=== PATIENT | female | born 1935 | race Caucasian/White ===

== ENCOUNTER → 2017-02-19 | Day surgery (SDC) | payer OTHER ==
[~2017-02-19] MED LIST: ALBU2.5I INH; ALBU8I INH; ALPR1TAB3 PO; CARD120T4 PO; ESTR1TAB PO; HYZA100T6 PO; MONT10 PO; OMEP20TA39 PO; ONDA4 PO; PROPOFOL 500 MG/50 ML BTL IV ONE; ROFL1TAB2 PO; SYMB160A INH; Z.0.OXYGEN INH
--- NOTE | 2017-02-19 09:40 | GIPROC ---
[facility] [address], [address] COLONOSCOPY PROCEDURE REPORT EXAM DATE: 02/19/2017 PATIENT NAME: Amanda Brooks MR #: [id number] BIRTHDATE: 1935 ENDOSCOPIST: Kristine Velazquez MD ORDER #: [id number] PLUG OVERWRAP MACHINE TENDER: Juan Pablo Sosa RN STATUS: outpatient INDICATIONS: The patient is a 81 yr old female here for a colonoscopy due to change in bowel habits, history of ischemic colitis, polyps PROCEDURE PERFORMED: Colonoscopy with biopsy Colonoscopy with polypectomy MEDICATIONS: None and Per Anesthesia. PREP QUALITY: good PREP TYPE:Other: ESTIMATED BLOOD LOSS: None CONSENT: The patient understands the risks and benefits of the procedure and understands that these risks include, but are not limited to: sedation, allergic reaction, infection, perforation and/or bleeding. Alternative means of evaluation and treatment include, among others: physical exam, x-rays, and/or surgical intervention. The patient elects to proceed with this endoscopic procedure. medical equipment was checked for proper function. Hand hygiene and appropriate measures for infection prevention was taken. After the risks, benefits and alternatives of the procedure were thoroughly explained, Informed consent was verified, confirmed and timeout was successfully executed by the treatment team. A digital exam revealed external hemorrhoids The EC-[id number] ([id number]) endoscope was introduced through the anus and advanced to the cecum, which was identified by both the appendix and ileocecal valve. The instrument was then slowly withdrawn as the colon was fully examined. COLON FINDINGS: Diverticulosis sigmoid,descending polyp sessile splenic flexure-6 mm hot snare polypectomy with complete removal random biopsies from ascending and descending colon. Retroflexed views revealed internal hemorrhoids and Retroflexed views revealed small internal hemorrhoids The scope was then completely withdrawn from the patient and the procedure terminated. PROCEDURE WITHDRAWAL TIME:6minutes ADVERSE EVENTS: There were no complications. IMPRESSIONS: 1. Diverticulosis sigmoid,descending polyp sessile splenic flexure-6 mm hot snare polypectomy with complete removal random biopsies from ascending and descending colon 2. Retroflexed views revealed internal hemorrhoids 3. Retroflexed views revealed small internal hemorrhoids 4. Revealed external hemorrhoids RECOMMENDATIONS: 1. Await biopsy results. Biopsy results will not be ready for 7-10 days. If you don't hear from us in two weeks, call our office for results. 2. Benefiber 2 tsp daily 3. Probiotics from any [employer] or health food store 4. Yearly rectal exams RECALL: Return 3 years Colonoscopy Kristine Velazquez MD eSigned: Kristine Velazquez MD 02/19/2017 9:39 AM cc: Donald Casey [facility] Schuster and Rao Tineo M.D. PATIENT NAME: Amanda Brooks MR#: [id number]
--- NOTE | 2017-02-19 09:44 | GIPROC ---
[facility] [address], [address] EGD PROCEDURE REPORT EXAM DATE: 02/19/2017 PATIENT NAME: Amanda Brooks MR #: [id number] BIRTHDATE: 1935 ATTENDING: Kristine Velazquez MD ORDER #: [id number] ANGIOGRAPHY TECHNOLOGIST: Juan Pablo Sosa RN STATUS: outpatient INDICATIONS: The patient is a 81 yr old female here for an EGD due to abdominal pain, melena PROCEDURE PERFORMED: EGD w/ biopsy MEDICATIONS: None and Per Anesthesia. TOPICAL ANESTHETIC: none CONSENT: The patient understands the risks and benefits of the procedure and understands that these risks include, but are not limited to: sedation, allergic reaction, infection, perforation and/or bleeding. Alternative means of evaluation and treatment include, among others: physical exam, x-rays, and/or surgical intervention. The patient elects to proceed with this endoscopic procedure. medical equipment was checked for proper function. Hand hygiene and appropriate measures for infection prevention was taken. After the risks, benefits and alternatives of the procedure were thoroughly explained, Informed consent was verified, confirmed and timeout was successfully executed by the treatment team. The patient was anesthetized with topical anesthesia and the EC-3890Li ([id number]) endoscope was introduced through the mouth and advanced to the second portion of the duodenum. Retroflexed views revealed a hiatal hernia The gastroscope was then slowly withdrawn and removed. Duodenitis duodenal bulb-biopsy gastritis antrum-biopsy esophagitis distal esophagus -biopsy. ADVERSE EVENTS: There were no complications. IMPRESSIONS: 1. Duodenitis duodenal bulb-biopsy gastritis antrum-biopsy esophagitis distal esophagus -biopsy 2. Retroflexed views revealed a hiatal hernia RECOMMENDATIONS: 1. Await biopsy results. Biopsy results will not be ready for 7-10 days. If you don't hear from us in two weeks, call our office for biopsy results. 2. Anti-reflux regimen 3. Continue PPI 4. Avoid NSAIDS PATIENT CONDITION: stable DISPOSITION: Home REPEAT EXAM: Return 1 year EGD Kristine Velazquez MD eSigned: Kristine Velazquez MD 02/19/2017 9:44 AM cc: Donald Casey [facility] Mariely Tineo M.D. PATIENT NAME: Amanda Brooks MR#: [id number]
== END | disposition home or self-care (01) ==
LOC: ESDC 07:18
PROVIDERS: ATTEND Internal Medicine Gastroenterology
DX: R19.4 Change in bowel habit (principal); K55.9 Vascular disorder of intestine, unspecified; Z86.010 Personal history of colon polyps; R10.9 Unspecified abdominal pain; K92.1 Melena; K64.4 Residual hemorrhoidal skin tags; D12.3 Benign neoplasm of transverse colon; K57.90 Diverticulosis of intestine, part unspecified, without perforation or abscess without bleeding; K64.8 Other hemorrhoids; K44.9 Diaphragmatic hernia without obstruction or gangrene; K29.80 Duodenitis without bleeding; K29.70 Gastritis, unspecified, without bleeding; K20.9 Esophagitis, unspecified
CPT/HCPCS: 88305; 88312

== ENCOUNTER 2017-07-08 14:22 | Inpatient (IN) | payer MEDICARE ==
[~2017-07-08] VITALS: Ht 142.2 cm; Wt 51.5 kg
[~2017-07-08 14:22] MED LIST changes: -PROPOFOL 500 MG/50 ML BTL IV ONE
[2017-07-08 14:28] VITALS: BP 119/58; PULSE 77; RESP 24; TEMP 94.7; O2SAT 97
[2017-07-08] MEDS ORDERED: SYMB160A INH (14:47)
[2017-07-08] MEDS ORDERED: MONT10TA2 PO (14:47)
[2017-07-08] MEDS ORDERED: CARD120T4 PO (14:47)
[2017-07-08] MEDS ORDERED: OMEP20TA93 PO (14:47)
[2017-07-08] MEDS ORDERED: VENTAER INH (14:47)
[2017-07-08] MEDS ORDERED: LOSA100T2 PO (14:47)
[2017-07-08] MEDS ORDERED: ALPR1TAB3 PO (14:47)
[2017-07-08] MEDS ORDERED: ESTR1TAB PO (14:47)
[2017-07-08] MEDS ORDERED: SODIUM CHLOR 0.9% 1000 ML INJ 1,000 ML IV ONE (15:15)
--- NOTE | 2017-07-08 15:22 | PD ---
HPI Chief Complaint: Medical Clearance Time Seen by Provider: 15:00 Travel History International Travel<30 days: No Contact w/Intl Traveler<30days: No Traveled to known affect area: No History of Present Illness HPI 82 YO F presents to the ED concerned for medication reaction. The patient states that she was experiencing dysuria and back pain. She was treated for a UTI by her PCP for ~ 3 weeks. She states that she took a course of an unknown antibiotic without resolution of symptoms and saw her PCP again today. She states that she was administered a "shot of penicillin" in the office and prescribed amoxicillin today. She took a single dose of amoxicillin and had an episode of N/V, SOB and diaphoretic. States symptoms are resolved on presentation. On presentation the patient endorses intermittent dizziness without headache, vision changes or trauma. She endorses loose, nonbloody stools times "a few days." She endorses dysuria and bilateral back pain. She denies chest pain, palpitations, shortness of breath, abdominal pain, weakness of the extremities. PFSH Past Medical History Asthma: Yes Autoimmune Disease: No Anxiety: Yes Depression: Yes Heart Rhythm Problems: Yes (SVT) Cancer: Yes (LEUKEMIA, LYMPHOMA) Cardiac Catheterization: No Cardiovascular Problems: Yes (SVT ) High Cholesterol: No Chemotherapy: Yes Chest Pain: No Congestive Heart Failure: No COPD: Yes (NOT ON O2) Cerebrovascular Accident: No Diabetes: No Diminished Hearing: No Endocrine: No Gastrointestinal Disorders: Yes GERD: Yes Genitourinary: Yes (URETHRA DILATED SEVERAL TIMES) Headaches: No Hiatal Hernia: Yes Hypertension: Yes Immune Disorder: No Kidney Stones: Yes Musculoskeletal: Yes (ARTHRITIS) Neurologic: Yes Psychiatric: Yes Reproductive: No Respiratory: Yes (COPD, ASTHMA ) Migraines: No Radiation Therapy: No Renal Failure: No Seizures: No Sickle Cell Disease: No Sleep Apnea: No Thyroid Disease: No Ulcer: No Menopausal: Yes Past Surgical History Abdominal Surgery: Yes (GALLBLADDER) AICD: No Arteriovenous Shunt: No Cardiac Surgery: No Cholecystectomy: Yes Coronary Artery Bypass Graft: No Ear Surgery: No Endocrine Surgery: No Eye Surgery: Yes (BILAT CATARACT SURGERY X2) Genitourinary Surgery: Yes (2010) Gynecologic Surgery: Yes (HYSTERECTOMY) Hysterectomy: Yes Insulin Pump: No Joint Replacement: No Oral Surgery: No Pacemaker: No Thoracic Surgery: No Other Surgery: Yes (HEMMORRHOIDS ) Social History Alcohol Use: No Tobacco Use: No Substance Use: No Allergies-Medications (Allergen,Severity, Reaction): Coded Allergies: Penicillins (Verified Allergy, Severe, 07/08/17) itching/sob Sulfa (Sulfonamide Antibiotics) (Unverified Allergy, Severe, Nausea/ Vomiting, 07/08/17) sulfamethoxazole (Unverified Allergy, Severe, N/V, 07/08/17) tolterodine (Unverified Allergy, Severe, NO URINE OUTPUT, 07/08/17) tree nut (Unverified Allergy, Severe, Anaphylaxis, 07/08/17) trimethoprim (Unverified Allergy, Severe, N/V, 07/08/17) Reported Meds & Prescriptions Reported Meds & Active Scripts Active Reported Omeprazole 20 Mg Tab 20 Mg PO DAILY Singulair (Montelukast Sodium) 10 Mg Tab 10 Mg PO HS Losartan-Hydrochlorothiazide 100-25 Mg Tab 1 Tab PO DAILY Estradiol 1 Mg Tab 1 Mg PO DAILY Cardizem (Diltiazem HCl) 120 Mg Tab 120 Mg PO DAILY Symbicort Inh (Budesonide/Formoterol Fumarate) 160-4.5 Mcg/Act Aero 1 Puff INH Q12HR Alprazolam 1 Mg Tab 1 Mg PO TID PRN Ventolin Hfa 18 GM Inh (Albuterol Sulfate) 90 Mcg/Act Aer 2 Puff INH Q4HR PRN Review of Systems Except as stated in HPI: all other systems reviewed are Neg Physical Exam Narrative GENERAL: Thin, petite white female in no acute distress. SKIN: Focused skin assessment warm/dry. HEAD: Normocephalic. EYES: No scleral icterus. No injection or drainage. NECK: Supple, trachea midline. No JVD or lymphadenopathy. CARDIOVASCULAR: Regular rate and rhythm without murmurs, gallops, or rubs. RESPIRATORY: Breath sounds clear and equal bilaterally. No accessory muscle use. GASTROINTESTINAL: Abdomen soft, non-tender, nondistended. No suprapubic tenderness. Hypoactive bowel sounds. MUSCULOSKELETAL: No cyanosis, or edema. BACK: Nontender without obvious deformity. ++ Bilateral CVA tenderness. Data Data Last Documented VS Vital Signs Date Time Temp Pulse Resp B/P (MAP) Pulse Ox O2 Delivery O2 Flow Rate FiO2 07/08/17 18:29 97.8 80 16 156/75 (102) 99 Room Air Orders Orders Sepsis Workup Initiated (07/08/17 ) Complete Blood Count With Diff (07/08/17 15:08) Comprehensive Metabolic Panel (07/08/17 15:08) Prothrombin Time / Inr (Pt) (07/08/17 15:08) Act Partial Throm Time (Ptt) (07/08/17 15:08) Lactic Acid Sepsis Protocol (07/08/17 15:08) Urinalysis - C+S If Indicated (07/08/17 15:08) Chest, Single Ap (07/08/17 15:08) Blood Glucose (07/08/17 15:08) Ecg Monitoring (07/08/17 15:08) Iv Access Insert/Monitor (07/08/17 15:08) Oximetry (07/08/17 15:08) Sodium Chlor 0.9% 1000 Ml Inj (Ns 1000 M (07/08/17 15:15) Urine Culture (07/08/17 17:12) Ct Abd/Pel W/O Iv Contrast (07/08/17 18:12) Aztreonam Inj (Azactam Inj) (07/08/17 18:12) Admit Order (Ed Use Only) (07/08/17 19:24) Labs Laboratory Tests Test 07/08/17 15:30 07/08/17 16:50 07/08/17 17:12 White Blood Count 16.1 TH/MM3 Red Blood Count 3.64 MIL/MM3 Hemoglobin 11.9 GM/DL Hematocrit 34.2 % Mean Corpuscular Volume 93.9 FL Mean Corpuscular Hemoglobin 32.7 PG Mean Corpuscular Hemoglobin Concent 34.8 % Red Cell Distribution Width 14.2 % Platelet Count 274 TH/MM3 Mean Platelet Volume 6.6 FL Neutrophils (%) (Auto) 44.0 % Lymphocytes (%) (Auto) 53.2 % Monocytes (%) (Auto) 2.3 % Eosinophils (%) (Auto) 0.3 % Basophils (%) (Auto) 0.2 % Neutrophils # (Auto) 7.1 TH/MM3 Lymphocytes # (Auto) 8.5 TH/MM3 Monocytes # (Auto) 0.4 TH/MM3 Eosinophils # (Auto) 0.0 TH/MM3 Basophils # (Auto) 0.0 TH/MM3 CBC Comment AUTO DIFF Differential Total Cells Counted 100 Neutrophils % (Manual) 49 % Band Neutrophils % 2 % Lymphocytes % 46 % Monocytes % 2 % Neutrophils # (Manual) 8.4 TH/MM3 Metamyelocytes 1 % Differential Comment FINAL DIFF MANUAL Platelet Estimate NORMAL Platelet Morphology Comment NORMAL Prothrombin Time 10.1 SEC Prothromb Time International Ratio 1.0 RATIO Activated Partial Thromboplast Time 21.1 SEC Lactic Acid Level 1.2 mmol/L Blood Urea Nitrogen 16 MG/DL Creatinine 0.86 MG/DL Random Glucose 77 MG/DL Total Protein 6.0 GM/DL Albumin 3.5 GM/DL Calcium Level 8.9 MG/DL Alkaline Phosphatase 52 U/L Aspartate Amino Transf (AST/SGOT) 15 U/L Alanine Aminotransferase (ALT/SGPT) 19 U/L Total Bilirubin 0.4 MG/DL Sodium Level 137 MEQ/L Potassium Level 3.1 MEQ/L Chloride Level 101 MEQ/L Carbon Dioxide Level 27.3 MEQ/L Anion Gap 9 MEQ/L Estimat Glomerular Filtration Rate 63 ML/MIN Urine Color YELLOW Urine Turbidity HAZY Urine pH 6.5 Urine Specific Towner 1.011 Urine Protein TRACE mg/dL Urine Glucose (UA) NEG mg/dL Urine Ketones NEG mg/dL Urine Occult Blood TRACE Urine Nitrite NEG Urine Bilirubin NEG Urine Urobilinogen LESS THAN 2.0 MG/DL Urine Leukocyte Esterase LARGE Urine RBC 5 /hpf Urine WBC 80 /hpf Urine Squamous Epithelial Cells 21 /hpf Urine Transitional Epithelial Cells <1 /hpf Urine Bacteria OCC /hpf Urine Hyaline Casts 15 /lpf Microscopic Urinalysis Comment CATH-CULTURE IND MDM Medical Decision Making Medical Screen Exam Complete: Yes Emergency Medical Condition: Yes Differential Diagnosis Cystitis versus pyelonephritis versus sepsis versus hydronephrosis versus other Narrative Course 82 YO F presents to the ED concerned for medication reaction. She was treated for a UTI by her PCP for ~ 3 weeks. She states that she took a course of an unknown antibiotic without resolution of symptoms and saw her PCP again today. She was administered a "shot of penicillin" in the office and prescribed amoxicillin today. She took a single dose of amoxicillin and had an episode of N /V, SOB and diaphoresis, resolved on presentation. Complains of intermittent dizziness without headache, vision changes or trauma. She endorses loose, nonbloody stools times "a few days." She endorses dysuria and bilateral back pain. Temp 94.7, pulse 77, BP 119/58 on presentation. On exam this is a petite , thin white female in no acute distress. Abdominal exam is benign. She does have CVA tenderness bilaterally. IV was established. Patient was administered 1 L normal saline IV. 07/08/17 15:30 07/08/17 16:50 INR 1.0. UA: Hazy, trace occult blood, large leukocyte esterase, 80 WBCs, occasional bacteria. Culture pending. CXR no acute disease per radiology read. CT abdomen and pelvis: No acute findings. Small hiatal hernia and left liver lobe cysts, stable. I reviewed the patient's record. There are no helpful urine cultures in recent history. Patient has contraindications to QT prolonging medications and several drug allergies. She was administered 1 g aztreonam. I discussed the results of the workup with the patient and recommended that she stay for observation. Patient's agreeable to this plan. I spoke with Dr. Diana who agrees to accept the patient to the medicine service. Please see medicine notes for disposition. Delma Alejandro Jul 08, 2017 15:22
[2017-07-08 15:50] VITALS: TEMP 97.3; O2SAT 100
--- NOTE | 2017-07-08 15:51 | RADRPT ---
EXAM DATE/TIME: 07/08/2017 15:17 [facility] COMPARISON: CHEST SINGLE AP, August 15, 2015, 11:08. INDICATIONS : Short of breath. MEDICAL HISTORY : Leukemia. Hypertension. SURGICAL HISTORY : Cholecystectomy. Hemorrhoidectomy. Inguinal hernia repair. ENCOUNTER: Initial ACUITY: 1 day PAIN SCORE: 0/10 LOCATION: Bilateral chest FINDINGS: A single view of the chest demonstrates the lungs to be symmetrically aerated without evidence of mas s, infiltrate or effusion. The cardiomediastinal contours are unremarkable. Osseous structures are intact. CONCLUSION: No acute disease. No significant change has occurred. Terry Lu MD on July 08, 2017 at 15:47 Board Certified Radiologist. This report was verified electronically.
[2017-07-08 16:20] LABS: AUTOMATED NEUTROPHIL # 7.1 TH/MM3 (1.8-7.7); BASOPHIL % 0.2 % (0.0-2.0); EOSINOPHIL % 0.3 % (0.0-4.0); HEMATOCRIT 34.2 % (35.0-46.0); HEMOGLOBIN 11.9 GM/DL (11.6-15.3); LYMPH % 53.2 % (9.0-44.0); LYMPHOCYTE # 8.5 TH/MM3 (1.0-4.8); MEAN CELL VOLUME 93.9 FL (80.0-100.0); MEAN CORPUSCULAR HEMOGLOBIN 32.7 PG (27.0-34.0); MEAN CORPUSCULAR HGB CONC 34.8 % (32.0-36.0); MEAN PLATELET VOLUME 6.6 FL (7.0-11.0); MONO % 2.3 % (0.0-8.0); MONOCYTE # 0.4 TH/MM3 (0-0.9); PLATELET COUNT 274 TH/MM3 (150-450); RED BLOOD COUNT 3.64 MIL/MM3 (4.00-5.30); RED CELL DISTRIBUTION WIDTH 14.2 % (11.6-17.2); WHITE BLOOD COUNT 16.1 TH/MM3 (4.0-11.0)
[2017-07-08 16:24] LABS: PROTHROMBIN TIME - PATIENT 10.1 SEC (9.8-11.6)
[2017-07-08 17:23] LABS: BANDS 2 % (0-6); LYMPHOCYTES 46 % (9-44); METAMYELOCYTES 1 % (0-1); MONOCYTES 2 % (0-8); NEUTROPHIL # MANUAL DIFF 8.4 TH/MM3 (1.8-7.7); POLYS (SEG NEUTROPHILS) 49 % (16-70)
[2017-07-08 17:27] LABS: BACTERIA, URINE OCC /hpf; BILIRUBIN, URINE NEG (NEG); BLOOD, URINE TRACE (NEG); GLUCOSE,URINE NEG (NEG); HYALINE CAST, URINE 15 /lpf (RARE); KETONE, URINE NEG (NEG); NITRITE,URINE NEG (NEG); PH, URINE 6.5 (5.0-8.5); SQUAMOUS EPITHELIAL CELL URINE 21 /hpf (0-5); TRANSITIONAL EPI CELLS, URINE <1 /hpf; URINE COLOR YELLOW (YELLW/STRAW); URINE LEUKOCYTE ESTERASE LARGE (NEG)
[2017-07-08 18:03] LABS: ALBUMIN 3.5 GM/DL (3.4-5.0); AST (GOT) 15 U/L (15-37); BICARBONATE 27.3 MEQ/L (21.0-32.0); BLOOD UREA NITROGEN 16 MG/DL (7-18); CALCIUM 8.9 MG/DL (8.5-10.1); CHLORIDE 101 MEQ/L (98-107); CREATININE 0.86 MG/DL (0.50-1.00); GLOMERULAR FILTRATION RATE 63 ML/MIN (>89); GLUCOSE,RANDOM 77 MG/DL (74-106); SODIUM (NA) 137 MEQ/L (136-145)
[2017-07-08 18:04] LABS: ALT (GPT) 19 U/L (10-53)
[2017-07-08 18:06] LABS: ALKALINE PHOSPHATASE 52 U/L (45-117); TOTAL BILIRUBIN ADULT 0.4 MG/DL (0.2-1.0)
[2017-07-08] MEDS ORDERED: AZTREONAM INJ 1,000 MG in SODIUM CHLORIDE 0.9% INJ 100 ML IV STA (18:12)
[2017-07-08 18:29] VITALS: BP 156/75; PULSE 80; RESP 16; TEMP 97.8; O2SAT 99
--- NOTE | 2017-07-08 19:47 | RADRPT ---
EXAM DATE/TIME: 07/08/2017 19:07 [facility] COMPARISON: CT ABDOMEN & PELVIS W/O CONTRAST, August 15, 2015, 8:22. INDICATIONS : Left sided flank pain. ORAL CONTRAST: No oral contrast ingested. RADIATION DOSE: 4.85 CTDIvol (mGy) MEDICAL HISTORY : Cardiovascular disease. Renal failure, chronic. Leukemia, Lymphoma. SURGICAL HISTORY : Cholecystectomy. Hysterectomy. ENCOUNTER: Initial ACUITY: 1 day PAIN SCALE: 2/10 LOCATION: Left upper quadrant TECHNIQUE: Volumetric scanning of the abdomen and pelvis was performed. Using automated exposure control and ad justment of the mA and/or kV according to patient size, radiation dose was kept as low as reasonably achievable to obtain optimal diagnostic quality images. DICOM format image data is available electro nically for review and comparison. FINDINGS: LOWER LUNGS: The visualized lower lungs are clear. Small hiatus hernia. LIVER: Round low density lesion in the medial segment of the left lobe of the liver measuring 9 mm, characte ristic of a cyst, unchanged from prior CT in 2016. Cholecystectomy. No other lesions seen in the alesha for noncontrast technique. SPLEEN: Normal size without lesion. PANCREAS: Within normal limits. KIDNEYS: Normal in size and shape. There is no mass, stone, or hydronephrosis. No calcifications along the c ourse of either ureter. ADRENAL GLANDS: Within normal limits. VASCULAR: There is no aortic aneurysm. BOWEL/MESENTERY: The stomach, small bowel, and colon demonstrate no acute abnormality. There is no free intraperitone al air or fluid. ABDOMINAL WALL: Within normal limits. RETROPERITONEUM: There is no lymphadenopathy. BLADDER: No wall thickening or mass. REPRODUCTIVE: Hysterectomy. No evidence of free fluid. INGUINAL: There is no lymphadenopathy or hernia. MUSCULOSKELETAL: Within normal limits for patient age. CONCLUSION: No acute findings. Small hiatus hernia and left lobe liver cyst, stable. Jr Casas MD on July 08, 2017 at 19:41 Board Certified Radiologist. This report was verified electronically.
[2017-07-08 20:37] VITALS: BP 156/70; PULSE 79; RESP 17; O2SAT 97
[2017-07-08] MEDS ORDERED: ONDA4TAB15 PO (20:41)
[2017-07-08] MEDS ORDERED: RESP: ALBUTEROL 2.5 MG/IPRATROPIUM 0.5 MG NEB (PRN) NEB ×2 (21:15→22:30)
[2017-07-08] MEDS ORDERED: SODIUM CHLORIDE 0.9% FLUSH 10 ML FLUSH IV FLUSH PRN (21:15)
[2017-07-08] MEDS ORDERED: ACETAMINOPHEN 325 MG TAB PO PRN (21:15)
[2017-07-08] MEDS ORDERED: NALOXONE HCL 0.4 MG/ML AMP IV PUSH PRN (21:15)
[2017-07-08] MEDS ORDERED: POTASSIUM CHLORIDE 20 MEQ CONTROLLED RELEASE TAB PO ONE (21:15)
[2017-07-08] MEDS: HEPARIN SODIUM - SQ 10,000 UNITS/ML VIAL SQ SCH ×2 (22:00→23:33)
--- NOTE | 2017-07-08 22:25 | HHI.HP ---
HPI Service [facility] Primary Care Physician Rao Tineo, DO Admission Diagnosis failed outpt treatement pyelonephritis Diagnoses: Travel History International Travel<30 Days: No Contact w/Intl Traveler <30 Da: No Traveled to Known Affected Are: No History of Present Illness 82-year-old female is a past medical history significant for CLL, COPD, SVT, hypertension and IBS presents to the emergency department for evaluation of a urinary tract infection and subsequent allergic reaction. The patient reports that she has been on 2 antibiotics over the past several weeks for a UTI. She cannot remember the name of the first antibiotic however today at her primary care provider's office she was given a shot of penicillin and a prescription for amoxicillin. The patient reports after taking one dose of the amoxicillin that she had an allergic reaction that involved itching, emesis, weakness and nausea/diarrhea. She came to the emergency department for further evaluation where she was found to have a persistent urinary tract infection. The patient denies any fever/chills. Per ED records, the patient reported bilateral flank pain however denies this during our interview. She denies any chest pain or shortness of breath. Denies any lateralizing signs/symptoms. No edema. Review of Systems Except as stated in HPI: all other systems reviewed are Neg Past Family Social History Past Medical History CLL COPD SVT Hypertension IBS Past Surgical History Cholecystectomy Hysterectomy Bilateral cataract surgery Reported Medications Reported Meds & Active Scripts Active Reported Ondansetron (Ondansetron HCl) 4 Mg Tab PO TID Omeprazole 20 Mg Tab 20 Mg PO DAILY Singulair (Montelukast Sodium) 10 Mg Tab 10 Mg PO HS Losartan-Hydrochlorothiazide 100-25 Mg Tab 1 Tab PO DAILY Estradiol 1 Mg Tab 1 Mg PO DAILY Cardizem (Diltiazem HCl) 120 Mg Tab 120 Mg PO DAILY Symbicort Inh (Budesonide/Formoterol Fumarate) 160-4.5 Mcg/Act Aero 1 Puff INH Q12HR Alprazolam 1 Mg Tab 1 Mg PO TID PRN Ventolin Hfa 18 GM Inh (Albuterol Sulfate) 90 Mcg/Act Aer 2 Puff INH Q4HR PRN Allergies: Coded Allergies: Penicillins (Verified Allergy, Severe, 07/08/17) itching/sob Sulfa (Sulfonamide Antibiotics) (Unverified Allergy, Severe, Nausea/ Vomiting, 07/08/17) sulfamethoxazole (Unverified Allergy, Severe, N/V, 07/08/17) tolterodine (Unverified Allergy, Severe, NO URINE OUTPUT, 07/08/17) tree nut (Unverified Allergy, Severe, Anaphylaxis, 07/08/17) trimethoprim (Unverified Allergy, Severe, N/V, 07/08/17) Family History Negative for CAD/DM Social History Quit tobacco in 2001. Denies alcohol and illicit drugs. Physical Exam Vital Signs Vital Signs Date Time Temp Pulse Resp B/P (MAP) Pulse Ox O2 Delivery O2 Flow Rate FiO2 07/08/17 21:56 07/08/17 20:38 (98) 07/08/17 20:37 79 17 156/70 (98) 97 Room Air 07/08/17 18:29 97.8 80 16 156/75 (102) 99 Room Air 07/08/17 15:50 97.3 100 Room Air 07/08/17 14:28 94.7 77 24 119/58 (78) 97 Physical Exam GENERAL: female lying in bed SKIN: No rashes, ecchymoses or lesions. Cool and dry. HEAD: Atraumatic. Normocephalic. No temporal or scalp tenderness. EYES: Pupils equal round and reactive. Extraocular motions intact. No scleral icterus. No injection or drainage. ENT: Nose without bleeding, purulent drainage or septal hematoma. Throat without erythema, tonsillar hypertrophy or exudate. Uvula midline. Airway patent. NECK: Trachea midline. No JVD or lymphadenopathy. Supple, nontender, no meningeal signs. CARDIOVASCULAR: Regular rate and rhythm without murmurs, gallops, or rubs. RESPIRATORY: Bilateral wheezes throughout. GASTROINTESTINAL: Abdomen soft, non-tender, nondistended. No hepato-splenomegaly , or palpable masses. No guarding. : No CVA tenderness. MUSCULOSKELETAL: Extremities without clubbing, cyanosis, or edema. No joint tenderness, effusion, or edema noted. No calf tenderness. NEUROLOGICAL: Awake and alert. Cranial nerves II through XII intact. Motor and sensory grossly within normal limits. Normal speech. Laboratory Laboratory Tests Test 07/08/17 15:30 07/08/17 16:50 07/08/17 17:12 White Blood Count 16.1 Red Blood Count 3.64 Hemoglobin 11.9 Hematocrit 34.2 Mean Corpuscular Volume 93.9 Mean Corpuscular Hemoglobin 32.7 Mean Corpuscular Hemoglobin Concent 34.8 Red Cell Distribution Width 14.2 Platelet Count 274 Mean Platelet Volume 6.6 Neutrophils (%) (Auto) 44.0 Lymphocytes (%) (Auto) 53.2 Monocytes (%) (Auto) 2.3 Eosinophils (%) (Auto) 0.3 Basophils (%) (Auto) 0.2 Neutrophils # (Auto) 7.1 Lymphocytes # (Auto) 8.5 Monocytes # (Auto) 0.4 Eosinophils # (Auto) 0.0 Basophils # (Auto) 0.0 CBC Comment AUTO DIFF Differential Total Cells Counted 100 Neutrophils % (Manual) 49 Band Neutrophils % 2 Lymphocytes % 46 Monocytes % 2 Neutrophils # (Manual) 8.4 Metamyelocytes 1 Differential Comment FINAL DIFF MANUAL Platelet Estimate NORMAL Platelet Morphology Comment NORMAL Prothrombin Time 10.1 Prothromb Time International Ratio 1.0 Activated Partial Thromboplast Time 21.1 Lactic Acid Level 1.2 Blood Urea Nitrogen 16 Creatinine 0.86 Random Glucose 77 Total Protein 6.0 Albumin 3.5 Calcium Level 8.9 Alkaline Phosphatase 52 Aspartate Amino Transf (AST/SGOT) 15 Alanine Aminotransferase (ALT/SGPT) 19 Total Bilirubin 0.4 Sodium Level 137 Potassium Level 3.1 Chloride Level 101 Carbon Dioxide Level 27.3 Anion Gap 9 Estimat Glomerular Filtration Rate 63 Urine Color YELLOW Urine Turbidity HAZY Urine pH 6.5 Urine Specific [place] 1.011 Urine Protein TRACE Urine Glucose (UA) NEG Urine Ketones NEG Urine Occult Blood TRACE Urine Nitrite NEG Urine Bilirubin NEG Urine Urobilinogen LESS THAN 2.0 Urine Leukocyte Esterase LARGE Urine RBC 5 Urine WBC 80 Urine Squamous Epithelial Cells 21 Urine Transitional Epithelial Cells <1 Urine Bacteria OCC Urine Hyaline Casts 15 Microscopic Urinalysis Comment CATH-CULTURE IND Date/Time Source Procedure Growth Status 07/08/17 17:12 Urine Catheterized Urine Urine Culture Pending Received Result Diagram: 07/08/17 1530 07/08/17 1650 Caprini VTE Risk Assessment Caprini VTE Risk Assessment: Mod/High Risk (score >= 2) Caprini Risk Assessment Model Point Value = 1 Point Value = 2 Point Value = 3 Point Value = 5 Age 41-60 Minor surgery BMI > 25 kg/m2 Swollen legs Varicose veins or History of unexplained or recurrent spontaneous Oral contraceptives or hormone replacement Sepsis (< 1 month) Serious lung disease, including pneumonia (< 1 month) Abnormal pulmonary function Acute myocardial infarction Congestive heart failure (< 1 month) History of inflammatory bowel disease Medical patient at bed rest Age 61-74 Arthroscopic surgery Major open surgery (> 45 min) Laparoscopic surgery (> 45 min) Malignancy Confined to bed (> 72 hours) Immobilizing plaster cast Central venous access Age >= 75 History of VTE Family history of VTE Factor V Leiden Prothrombin [id number] Lupus anticoagulant Anticardiolipin antibodies Elevated serum homocysteine Heparin-induced thrombocytopenia Other congenital or acquired thrombophilia Stroke (< 1 month) Elective arthroplasty Hip, pelvis, or leg fracture Acute spinal cord injury (< 1 month) Prophylaxis Regimen Total Risk Factor Score Risk Level Prophylaxis Regimen 0-1 Low Early ambulation 2 Moderate Order ONE of the following: *Sequential Compression Device (SCD) *Heparin 5000 units SQ BID 3-4 Higher Order ONE of the following medications: *Heparin 5000 units SQ TID *Enoxaparin/Lovenox 40 mg SQ daily (WT < 150 kg, CrCl > 30 mL/min) *Enoxaparin/Lovenox 30 mg SQ daily (WT < 150 kg, CrCl > 10-29 mL/min) *Enoxaparin/Lovenox 30 mg SQ BID (WT < 150 kg, CrCl > 30 mL/min) AND/OR *Sequential Compression Device (SCD) 5 or more Highest Order ONE of the following medications: *Heparin 5000 units SQ TID (Preferred with Epidurals) *Enoxaparin/Lovenox 40 mg SQ daily (WT < 150 kg, CrCl > 30 mL/min) *Enoxaparin/Lovenox 30 mg SQ daily (WT < 150 kg, CrCl > 10-29 mL/min) *Enoxaparin/Lovenox 30 mg SQ BID (WT < 150 kg, CrCl > 30 mL/min) AND *Sequential Compression Device (SCD) Assessment and Plan Assessment and Plan Assessment/plan: 1. Urinary tract infection Patient failed outpatient treatment Leukocytosis at 16.1 Given allergy profile was started on aztreonam Urine culture pending Tailor antibiotics once sensitivities result 2. Hypertension Continue home losartan/hydrochlorothiazide, diltiazem 3. COPD Continue home albuterol and Symbicort Duo nebs when necessary 4. CLL Patient managed as an outpatient by her PCP FEN Heart healthy diet Electrolytes: Status post potassium repletion, monitor BMP Heparin Estefani Diana MD Jul 08, 2017 22:25
[2017-07-08 22:27] VITALS: BP 145/66; PULSE 81; RESP 16; TEMP 98.1; O2SAT 96
[2017-07-08] MEDS ORDERED: ALPRAZolam 1 MG TAB PO PRN (22:30)
[2017-07-08] MEDS ORDERED: ALBUTEROL SULFATE 90 MCG/ACT HFA 8 GM INHALER INH PRN (22:30)
[2017-07-08] MEDS ORDERED: PROCHLORPERAZINE 25 MG SUPP RECTAL PRN (23:00)
[2017-07-08] MEDS: AZTREONAM INJ 1,000 MG in SODIUM CHLORIDE 0.9% INJ 100 ML IV SCH (23:34)
[2017-07-08 23:56] VITALS: PULSE 89
[2017-07-09 03:45] VITALS: PULSE 84
[2017-07-09 03:53] VITALS: BP 132/59; PULSE 89; RESP 16; TEMP 97.7; O2SAT 94
[2017-07-09] MEDS: HEPARIN SODIUM - SQ 10,000 UNITS/ML VIAL SQ SCH ×2 (05:25→14:00)
[2017-07-09 05:55] LABS: AUTOMATED NEUTROPHIL # 2.5 TH/MM3 (1.8-7.7); BASOPHIL % 0.3 % (0.0-2.0); EOSINOPHIL # 0.1 TH/MM3 (0-0.4); HEMATOCRIT 27.4 % (35.0-46.0); HEMOGLOBIN 9.9 GM/DL (11.6-15.3); LYMPH % 78.2 % (9.0-44.0); LYMPHOCYTE # 10.9 TH/MM3 (1.0-4.8); MEAN CELL VOLUME 93.8 FL (80.0-100.0); MEAN CORPUSCULAR HEMOGLOBIN 33.7 PG (27.0-34.0); MEAN CORPUSCULAR HGB CONC 35.9 % (32.0-36.0); MEAN PLATELET VOLUME 6.4 FL (7.0-11.0); MONO % 2.7 % (0.0-8.0); MONOCYTE # 0.4 TH/MM3 (0-0.9); NEUT % 17.8 % (16.0-70.0); PLATELET COUNT 234 TH/MM3 (150-450); RED BLOOD COUNT 2.92 MIL/MM3 (4.00-5.30); RED CELL DISTRIBUTION WIDTH 14.2 % (11.6-17.2); WHITE BLOOD COUNT 13.9 TH/MM3 (4.0-11.0)
[2017-07-09 06:18] LABS: BICARBONATE 26.2 MEQ/L (21.0-32.0); CALCIUM 8.4 MG/DL (8.5-10.1); CREATININE 0.7 MG/DL (0.50-1.00)
[2017-07-09 07:14] VITALS: BP 131/59; PULSE 88; RESP 18; TEMP 98.2; O2SAT 95
[2017-07-09 07:19] LABS: LYMPHOCYTES 75 % (9-44); MONOCYTES 2 % (0-8); NEUTROPHIL # MANUAL DIFF 3.1 TH/MM3 (1.8-7.7); POLYS (SEG NEUTROPHILS) 22 % (16-70); SMUDGE CELLS PRESENT PRESENT
[2017-07-09] MEDS ORDERED: SODIUM CHLORIDE 0.9% FLUSH 10 ML FLUSH IV FLUSH SCH (09:00)
[2017-07-09] MEDS ORDERED: BUDESONIDE-FORMOTEROL 160/4.5 MCG INHALER INH SCH ×2 (09:00→21:00)
[2017-07-09] MEDS ORDERED: ESTRADIOL 1 MG TAB PO SCH (09:00)
[2017-07-09] MEDS ORDERED: PANTOPRAZOLE SOD 20 MG DELAYED RELEASE TAB PO SCH (09:00)
[2017-07-09] MEDS ORDERED: LOSARTAN 50 MG TAB PO SCH (09:00)
[2017-07-09] MEDS ORDERED: DILTIAZEM-CD 120 MG CAP ER PO SCH (09:00)
[2017-07-09] MEDS ORDERED: RESP: ALBUTEROL 2.5 MG/IPRATROPIUM 0.5 MG NEB (SCH) NEB (09:00)
[2017-07-09] MEDS ORDERED: HYDROCHLOROTHIAZIDE 25 MG TAB PO SCH (09:00)
[2017-07-09] MEDS ORDERED: NON-FORMULARY DRUG (Losartan-Hydrochlorothiazide 1 TAB) PO SCH (09:00)
[2017-07-09] MEDS ORDERED: methylPREDNISolone SOD SUCC 40 MG/1 ML VIAL IV PUSH ONE (09:15)
--- NOTE | 2017-07-09 11:24 | HHI.PR ---
Subjective Remarks Follow-up UTI. Resolved symptoms and wants to go home. States she developed nausea, vomiting, diarrhea and itching 1 hour after taking the unrecalled antibiotic pill at home yesterday. She understands she needs to stay in the hospital because of the need for IV antibiotic for failed outpatient treatment for UTI. Objective Vitals Vital Signs Date Time Temp Pulse Resp B/P (MAP) Pulse Ox O2 Delivery O2 Flow Rate FiO2 07/09/17 07:14 98.2 88 18 131/59 (83) 95 07/09/17 03:53 97.7 89 16 132/59 (83) 94 07/09/17 03:45 84 07/08/17 23:56 89 07/08/17 22:27 98.1 81 16 145/66 (92) 96 07/08/17 21:56 07/08/17 20:38 (98) 07/08/17 20:37 79 17 156/70 (98) 97 Room Air 07/08/17 18:29 97.8 80 16 156/75 (102) 99 Room Air 07/08/17 15:50 97.3 100 Room Air 07/08/17 14:28 94.7 77 24 119/58 (78) 97 I/O 07/08/17 07/08/17 07/08/17 07/09/17 07/09/17 07/09/17 07:00 15:00 23:00 07:00 15:00 23:00 Intake Total 1100 ml Balance 1100 ml Intake IV Total 1100 ml Result Diagram: 07/09/17 0531 07/09/17 0531 Imaging Last Impressions Abdomen/Pelvis CT 07/08/17 1812 Signed Impressions: Service Date/Time: Saturday, July 08, 2017 19:07 - CONCLUSION: No acute findings. Small hiatus hernia and left lobe liver cyst, stable. Jr Casas MD Chest X-Ray 07/08/17 1508 Signed Impressions: Service Date/Time: Saturday, July 08, 2017 15:17 - CONCLUSION: No acute disease. No significant change has occurred. Terry Lu MD Objective Remarks GENERAL: female lying in bed SKIN: No rashes, ecchymoses or lesions. Cool and dry. CARDIOVASCULAR: Regular rate and rhythm without murmurs, gallops, or rubs. RESPIRATORY: Bilateral wheezes throughout. GASTROINTESTINAL: Abdomen soft, non-tender, nondistended. No guarding. : No CVA tenderness. MUSCULOSKELETAL: Extremities without clubbing, cyanosis, or edema. No joint tenderness, effusion, or edema noted. No calf tenderness. NEUROLOGICAL: Awake and alert. Cranial nerves II through XII intact. Motor and sensory grossly within normal limits. Normal speech. Procedures none A/P Problem List: (1) UTI (urinary tract infection) ICD Code: N39.0 - Urinary tract infection, site not specified Assessment and Plan 1. Urinary tract infection possible pyelonephritis with sepsis. Improving leukocytosis continue aztreonam and follow cultures. 2. Hypertension. Stable continue home losartan/hydrochlorothiazide, diltiazem 3. COPD exacerbation. Continue home albuterol and Symbicort. Duo nebs when necessary. IV Solu-Medrol 1 4. CLL. Patient managed as an outpatient by her PCP 5. Possible allergic reaction to penicillin. Symptoms resolved. FEN Heart healthy diet Electrolytes: Status post potassium repletion, monitor BMP Heparin Discharge Planning Needs IV antibiotic not ready for discharge Jono Mitchell MD Jul 09, 2017 11:24
[2017-07-09] MEDS: AZTREONAM INJ 1,000 MG in SODIUM CHLORIDE 0.9% INJ 100 ML IV SCH (12:11)
[2017-07-09] MEDS ORDERED: ALBUTEROL SULFATE 90 MCG/ACT HFA 8 GM INHALER INH SCH (13:00)
[2017-07-09 13:30] VITALS: BP 135/62; PULSE 94; RESP 18; TEMP 97.9; O2SAT 93
--- NOTE | 2017-07-09 15:46 | PD.AMA ---
Against Medical Advice Note AMA Statement Patient Amanda Brooks has decided to leave the hospital against medical advice. This patient has the capacity to refuse care and understands the risks of leaving, including permanent disability and/or , and has had an opportunity to ask questions about her condition. The patient has been informed that she may return for care at any time, and follow up has been arranged/ advised. Jono Mitchell MD Jul 09, 2017 15:46
[2017-07-09] MEDS ORDERED: MONTELUKAST SODIUM 10 MG TAB PO SCH (21:00)
== END 2017-07-09 17:44 | disposition left against medical advice (07) | DRG 872 ==
LOC: NEPE 14:22 → NEDA 19:26 → NEPFCDU 21:54 → OBSVTOIN 07-09 11:49
PROVIDERS: ADMIT Internal Medicine; ATTEND Internal Medicine
DX: A41.9 Sepsis, unspecified organism (principal); C91.10 Chronic lymphocytic leukemia of B-cell type not having achieved remission; J44.1 Chronic obstructive pulmonary disease with (acute) exacerbation; N12 Tubulo-interstitial nephritis, not specified as acute or chronic; K76.89 Other specified diseases of liver; I10 Essential (primary) hypertension; K21.9 Gastro-esophageal reflux disease without esophagitis; K44.9 Diaphragmatic hernia without obstruction or gangrene; K58.0 Irritable bowel syndrome with diarrhea; M19.90 Unspecified osteoarthritis, unspecified site; F32.9 Major depressive disorder, single episode, unspecified; F41.9 Anxiety disorder, unspecified; Z87.891 Personal history of nicotine dependence; Z88.0 Allergy status to penicillin; Z88.2 Allergy status to sulfonamides; Z92.21 Personal history of antineoplastic chemotherapy
CPT/HCPCS: 71045; 74176; 80048; 80053; 81001; 83605; 85007; 85027; 85610; 85730; 87086; 94664; 96361; 96365; G0378; J1644; J2920; J7030

== ENCOUNTER 2017-08-12 15:46 | Emergency (ER) | payer MEDICARE ==
[~2017-08-12] VITALS: Ht 142.2 cm; Wt 52.0 kg
[~2017-08-12 15:46] MED LIST changes: -ALBU2.5I INH; -ALBU8I INH; -HYZA100T6 PO; +LOSA100T2 PO; -MONT10 PO; +MONT10TA2 PO; -OMEP20TA39 PO; +OMEP20TA93 PO; -ONDA4 PO; +ONDA4TAB15 PO; -ROFL1TAB2 PO; +VENTAER INH; -Z.0.OXYGEN INH
[2017-08-12 16:03] VITALS: BP 150/65; PULSE 85; RESP 16; TEMP 97.8; O2SAT 97
--- NOTE | 2017-08-12 16:31 | PD ---
HPI Chief Complaint: Fall Time Seen by Provider: 16:16 Travel History International Travel<30 days: No Contact w/Intl Traveler<30days: No Traveled to known affect area: No History of Present Illness HPI This patient had a fall 3 days ago and struck the left side of her head and face on a computer chair. She falls frequently. She is supposed to be using a walker at all times but was not at the time. She did not lose consciousness. She denies blood thinners. She went to her oncologist today who sent her here to get a brain CT. Patient has no headache. She denies any neurologic complaint. She has a skin tear on her knee that has been there for 3 days now. She has a lot of various stages of bruising throughout her body. Duration 3 days. Symptom severity is mild. No alleviating factors. No exacerbating factors. PFSH Past Medical History Asthma: Yes Autoimmune Disease: No Anxiety: No Depression: No Heart Rhythm Problems: Yes (SVT) Cancer: Yes (LEUKEMIA, LYMPHOMA) Cardiac Catheterization: No Cardiovascular Problems: Yes (SVT ) High Cholesterol: No Chemotherapy: No Chest Pain: No Congestive Heart Failure: No COPD: Yes (NOT ON O2) Cerebrovascular Accident: No Diabetes: No Diminished Hearing: Yes Endocrine: No Gastrointestinal Disorders: Yes GERD: Yes Genitourinary: Yes (URETHRA DILATED SEVERAL TIMES) Headaches: No Hiatal Hernia: Yes Hypertension: Yes Immune Disorder: No Kidney Stones: Yes Musculoskeletal: Yes (ARTHRITIS) Neurologic: No Psychiatric: No Reproductive: No Respiratory: Yes (COPD, ASTHMA ) Migraines: No Radiation Therapy: No Renal Failure: No Seizures: No Sickle Cell Disease: No Sleep Apnea: No Thyroid Disease: No Ulcer: No ?: Not Menopausal: Yes Past Surgical History Abdominal Surgery: Yes (GALLBLADDER) AICD: No Arteriovenous Shunt: No Cardiac Surgery: No Cholecystectomy: Yes Coronary Artery Bypass Graft: No Ear Surgery: No Endocrine Surgery: No Eye Surgery: Yes (BILAT CATARACT SURGERY X2) Genitourinary Surgery: Yes (2010) Gynecologic Surgery: Yes (HYSTERECTOMY) Hysterectomy: Yes Insulin Pump: No Joint Replacement: No Oral Surgery: No Pacemaker: No Thoracic Surgery: No Other Surgery: Yes (HEMMORRHOIDS ) Social History Alcohol Use: No Tobacco Use: No Substance Use: No Allergies-Medications (Allergen,Severity, Reaction): Coded Allergies: Penicillins (Verified Allergy, Severe, 08/12/17) itching/sob Sulfa (Sulfonamide Antibiotics) (Unverified Allergy, Severe, Nausea/ Vomiting, 08/12/17) sulfamethoxazole (Unverified Allergy, Severe, N/V, 08/12/17) tolterodine (Unverified Allergy, Severe, NO URINE OUTPUT, 08/12/17) tree nut (Unverified Allergy, Severe, Anaphylaxis, 08/12/17) trimethoprim (Unverified Allergy, Severe, N/V, 08/12/17) Reported Meds & Prescriptions Reported Meds & Active Scripts Active Reported Ondansetron (Ondansetron HCl) 4 Mg Tab PO TID Omeprazole 20 Mg Tab 20 Mg PO DAILY Singulair (Montelukast Sodium) 10 Mg Tab 10 Mg PO HS Losartan-Hydrochlorothiazide 100-25 Mg Tab 1 Tab PO DAILY Estradiol 1 Mg Tab 1 Mg PO DAILY Cardizem (Diltiazem HCl) 120 Mg Tab 120 Mg PO DAILY Symbicort Inh (Budesonide/Formoterol Fumarate) 160-4.5 Mcg/Act Aero 1 Puff INH Q12HR Alprazolam 1 Mg Tab 1 Mg PO TID PRN Ventolin Hfa 18 GM Inh (Albuterol Sulfate) 90 Mcg/Act Aer 2 Puff INH Q4HR PRN Review of Systems General / Constitutional: No: Fever Eyes: No: Visual changes HENT: No: Headaches Cardiovascular: No: Chest Pain or Discomfort Respiratory: No: Shortness of Breath Gastrointestinal: No: Abdominal Pain Genitourinary: No: Dysuria Musculoskeletal: No: Pain Skin: No Rash Neurologic: No: Weakness Psychiatric: No: Depression Endocrine: No: Polydipsia Hematologic/Lymphatic: No: Easy Bruising Physical Exam Narrative GENERAL: Well-nourished, well-developed patient in no apparent distress. SKIN: Focused skin assessment reveals no rash and nodules. Skin is Warm and dry.. Has a smattering of ecchymosis to both legs, various stages HEAD: Has ecchymosis to the left forehead and left periorbital region. No facial bone tenderness. No scalp tenderness. Reveal normocephalic. EYES: Pupils a oval-shaped pupil on the left, distorted from cataract surgery. Pupil on the right is round and reactive . No scleral icterus. No injection or drainage. ENT: No nasal bleeding or discharge. Mucous membranes pink and moist. NECK: Trachea midline. No JVD. No midline tenderness CARDIOVASCULAR: Regular rate and rhythm. No murmur appreciated. RESPIRATORY: No accessory muscle use. Clear to auscultation. Breath sounds equal bilaterally. GASTROINTESTINAL: Abdomen soft, non-tender, nondistended. Hepatic and splenic margins not palpable. MUSCULOSKELETAL: No obvious deformities. No clubbing. No cyanosis. No edema. Old skin tear to left knee. This will be dressed but it is too old to try to repair. Has a smattering of ecchymosis to both legs NEUROLOGICAL: Awake and alert. No obvious cranial nerve deficits. Motor grossly within normal limits. Normal speech. PSYCHIATRIC: Appropriate mood and affect; insight and judgment normal. Data Data Last Documented VS Vital Signs Date Time Temp Pulse Resp B/P (MAP) Pulse Ox O2 Delivery O2 Flow Rate FiO2 08/12/17 16:03 97.8 85 16 150/65 (93) [address] Brain W/O Iv Contrast(Rout) (08/12/17 ) [facility] Medical Decision Making Medical Screen Exam Complete: Yes Emergency Medical Condition: Yes Medical Record Reviewed: Yes Differential Diagnosis Contusion, concussion, intracranial hemorrhage Narrative Course I have reviewed the patient's electronic medical record. Patient and patient's oncologist have expectations for brain CT. I have ordered one. She is neurologically intact Knee skin tear is dressed CT scan shows no hemorrhage or fracture or edema. There is some atrophy and some small vessel ischemic disease. Patient feels fine on recheck and wants to go home Diagnosis Primary Impression: Head injury due to trauma Qualified Codes: S09.90XA - Unspecified injury of head, initial encounter Additional Impressions: Multiple bruises Skin tear of lower leg without complication Qualified Codes: S81.812A - Laceration without foreign body, left lower leg, initial encounter Additional Instructions: The patient was advised to follow up with their physician and return if they worsen. Med/Other Pt SpecificInfo: Other Disposition: 01 DISCHARGE HOME Condition: Stable Nash Avila MD Aug 12, 2017 16:31
--- NOTE | 2017-08-12 17:24 | RADRPT ---
EXAM DATE/TIME: 08/12/2017 17:10 [place] COMPARISON: No previous studies available for comparison. INDICATIONS : Fell and hit left side of head. RADIATION DOSE: 48.32 CTDIvol (mGy) MEDICAL HISTORY : Hypertension. Chronic obstructive pulmonary disease. Lymphoma.Leukemia. SURGICAL HISTORY : Cholecystectomy. Hysterectomy. ENCOUNTER: Initial ACUITY: 3 days PAIN SCALE: 3/10 LOCATION: Left cranial TECHNIQUE: Multiple contiguous axial images were obtained of the head. Using automated exposure control and adj ustment of the mA and/or kV according to patient size, radiation dose was kept as low as reasonably a chievable to obtain optimal diagnostic quality images. DICOM format image data is available electro nically for review and comparison. FINDINGS: CEREBRUM: Mild cerebral atrophy is noted. Mild periventricular white matter small vessel ischemic changes are n oted bilaterally. No evidence of midline shift, mass lesion, hemorrhage or acute infarction. No extr a-axial fluid collections are seen. POSTERIOR FOSSA: The cerebellum and brainstem are intact. The 4th ventricle is midline. The cerebellopontine angle i s unremarkable. EXTRACRANIAL: The visualized portion of the orbits is intact. SKULL: The calvaria is intact. No evidence of skull fracture. CONCLUSION: 1. Mild cerebral atrophy and periventricular white matter small vessel ischemic changes bilaterally. 2. No acute infarct, acute hemorrhage, mass effect or extra-axial fluid collections. Mello Rodriguez MD on August 12, 2017 at 17:20 Board Certified Radiologist. This report was verified electronically.
== END 2017-08-12 18:10 | disposition home or self-care (01) ==
LOC: PHED 15:46
DX: S09.90XA Unspecified injury of head, initial encounter (principal); S81.812A Laceration without foreign body, left lower leg, initial encounter; I47.1 Supraventricular tachycardia; J44.9 Chronic obstructive pulmonary disease, unspecified; H91.90 Unspecified hearing loss, unspecified ear; K21.9 Gastro-esophageal reflux disease without esophagitis; I10 Essential (primary) hypertension; Z87.442 Personal history of urinary calculi; W18.30XA Fall on same level, unspecified, initial encounter; M19.90 Unspecified osteoarthritis, unspecified site; Z88.0 Allergy status to penicillin; Z88.2 Allergy status to sulfonamides; Z91.81 History of falling
CPT/HCPCS: 70450; 99283